=== PATIENT | male | born 1950 | race Caucasian/White ===

== ENCOUNTER 2017-10-22 14:33 | Outpatient (CLI) | payer MEDICARE ==
--- NOTE | 2017-10-22 16:07 | RAD ---
CHEST TWO VIEWS: 10/22/17 HISTORY: Dyspnea. COMPARISON: 05/27/16. FINDINGS: Cardiac silhouette and pulmonary vasculature are unremarkable. Mediastinum is midline. Calcified gran ulomata are consistent with healed granulomatous disease. There is no confluent air space consolidati on, pneumothorax or pleural fluid eminent. Degenerative changes involve the thoracic spine in the lat eral view. IMPRESSION: No active cardiopulmonary abnormalities are demonstrated. POS: [facility]
== END 2017-10-22 14:34 | disposition home or self-care (01) ==
LOC: RAD 14:33
PROVIDERS: ATTEND Internal Medicine
DX: R06.00 Dyspnea, unspecified (principal)
CPT/HCPCS: 71046

== ENCOUNTER 2017-11-12 18:00 | Outpatient (CLI) | payer MEDICARE | END 2017-11-12 18:01 | disposition home or self-care (01) | LOC: SLEEPLAB 18:00 | PROVIDERS: ATTEND Internal Medicine | DX: G47.33 Obstructive sleep apnea (adult) (pediatric) (principal); G47.31 Primary central sleep apnea; K21.9 Gastro-esophageal reflux disease without esophagitis | CPT/HCPCS: 95806 ==

== ENCOUNTER 2019-08-31 14:30 | Inpatient (IN) | payer MEDICARE ==
[2019-08-31 16:42] VITALS: BMI 27.9
[2019-09-08] MEDS ORDERED: Sodium Chloride 0.9% 100 ML ONE (05:58)
[2019-09-08] MEDS ORDERED: Tranexamic Acid 1,000 MG/10 ML VIAL ONE (05:58)
[2019-09-08] MEDS ORDERED: Vancomycin 1.5 GRAM/300 ML BAG 1.5 GM in Premix Bag 1 BAG IVPB SCH (06:00)
[2019-09-08] MEDS ORDERED: Midazolam HCl 2 mg/2 ml Vial ONE ×2 (06:20→06:46)
[2019-09-08] MEDS ORDERED: Fentanyl 100 MCG/2 ML VIAL ONE ×2 (06:20→06:46)
[2019-09-08] MEDS ORDERED: Lidocaine 1% (PF) 30 ML VIAL ONE (06:21)
[2019-09-08] MEDS ORDERED: Acetaminophen 325 MG TAB PO PRN ×2 (06:46→06:55)
[2019-09-08] MEDS ORDERED: HYDROcodone/Acetaminophen 10/325 mg Tablet PO PRN ×3 (06:46→06:53)
[2019-09-08] MEDS ORDERED: [UNRECOGNIZED DRUG - OTHER] INH PRN (06:50)
[2019-09-08] MEDS ORDERED: Promethazine HCl 25 MG/ML VIAL IM PRN (06:53)
[2019-09-08] MEDS ORDERED: Ropivacaine 0.2% 550 ML 550 ML NERVE BLCK SCH (06:53)
[2019-09-08] MEDS ORDERED: Zolpidem Tartrate 5 MG TAB PO PRN (06:53)
[2019-09-08] MEDS ORDERED: Ondansetron PF 4 MG/2 ML Vial IVP PRN (06:53)
[2019-09-08] MEDS ORDERED: traMADol HCl 50 MG TAB PO PRN ×2 (06:53)
[2019-09-08] MEDS ORDERED: Fentanyl 100 MCG/2 ML VIAL IV PRN (06:54)
[2019-09-08] MEDS ORDERED: Dextrose 5 %-0.45 % NaCl 1,000 ML IV SCH (07:00)
[2019-09-08] MEDS ORDERED: Aspirin 81 mg Enteric Coated Tablet PO SCH (07:00)
[2019-09-08] MEDS ORDERED: Lisinopril 20 MG TAB PO SCH (09:00)
[2019-09-08] MEDS ORDERED: Carvedilol 25 MG TAB PO SCH (09:00)
[2019-09-08] MEDS ORDERED: Atorvastatin Calcium 40 MG TAB PO SCH (09:00)
[2019-09-08] MEDS ORDERED: Ketorolac Tromethamine 30 MG/ML VIAL IVP SCH ×2 (12:00)
[2019-09-08] MEDS ORDERED: Ropivacaine 0.5% HCl/PF (150 MG/30 ML VIAL) ONE (13:42)
[2019-09-08] MEDS ORDERED: Ropivacaine 0.2% HCl/PF (40 MG/20 ML VIAL) ONE (13:42)
[2019-09-08] MEDS ORDERED: Glycopyrrolate 0.2 MG/ML 5 ML SYRINGE ONE (13:42)
[2019-09-08] MEDS ORDERED: Dexamethasone 20 MG/5 ML VIAL ONE (13:42)
[2019-09-08] MEDS ORDERED: Ketorolac Tromethamine 30 MG/ML VIAL ONE (13:42)
[2019-09-08] MEDS ORDERED: Rocuronium Bromide 10 MG/ML (10ML VIAL) ONE (13:42)
[2019-09-08] MEDS ORDERED: PHENYLEPHRINE-NS 100 MCG/ML 10 ML SYRINGE ONE (13:42)
[2019-09-08] MEDS ORDERED: Ondansetron PF 4 MG/2 ML Vial ONE (13:42)
[2019-09-08] MEDS ORDERED: ePHEDrine/0.9% NaCl/PF SYRINGE 50 mg/10 ml ONE (13:42)
[2019-09-08] MEDS ORDERED: PROPOFOL 200 MG/20 ML VIAL ONE (13:42)
[2019-09-08] MEDS ORDERED: CEFAZOLIN 2 GM in Premix Bag 1 BAG IVPB SCH (14:00)
[2019-09-08] MEDS ORDERED: Hydrochlorothiazide 25 MG TAB PO SCH (21:00)
--- NOTE | 2019-09-09 10:11 | OP ---
DATE OF PROCEDURE: 09/08/2019 PREOPERATIVE DIAGNOSES: 1. Degenerative joint disease, right shoulder. 2. Biceps tendinitis. POSTOPERATIVE DIAGNOSES: 1. Degenerative joint disease, right shoulder. 2. Biceps tendinitis. PROCEDURES PERFORMED: Left total shoulder arthroplasty and biceps tenodesis. IMPLANTS USED: Perform Cortiloc glenoid by Tornier size large 40, flex stem high offset head 48 x 18, flex stem 4C. SENIOR SYSTEMS ADMINISTRATOR: Easton Sin PA-C BLOOD LOSS: 150. SPECIMEN: None. DRAINS: None. COMPLICATION: None. DESCRIPTION OF PROCEDURE: After appropriate consent was obtained, the patient was taken to the operating room where general anesthesia was induced. The patient was placed in a beach chair position. Left arm was prepped and draped in the usual sterile fashion. Oblique incision was made in the deltopectoral interval. Cephalic vein was identified and preserved. Dissection was carried down to the conjoint tendon which was retracted medially. The subscapularis was taken down. The biceps tendon was in poor condition. It was taken down off the superior glenoid tubercle and tenodesed to the pectoralis tendon. Excess tendon was removed. The shoulder was then easily dislocated. I opened the humerus with a T handle and then cut a 20 mm retroversion superior cut. The subscapularis had been previously tagged. I used a subscapularis to follow this down to the anterior glenoid and a Bankart retractor was placed anteriorly, and drill was placed posteriorly. I drilled a center hole in the glenoid and reamed with a 1-step reamer. Irrigation was performed. The base plate was deployed without difficulty. Screws were inserted in the usual technique with good compression and fixation. Glenosphere was deployed without difficulty and the screw was tightened. Attention was turned back to the humerus which was opened with a T handle, and after using the acetabular reamer, I then also used a metaphyseal reamer. The appropriate size stem was trialed and polyethylene was trialed until the implants were determined as above. I did drill holes through the humerus, and a cottony Dacron suture was placed around the prosthesis through bone to facilitate repair of the subscapularis. Irrigation was performed. Permanent implants were placed. Shoulder was reduced. The subscapularis was repaired back to bone using the cottony Dacron suture. Irrigation performed again. The deltopectoral interval was tacked shut with 0 Vicryl, subcutaneous tissue was closed with 2-0 Vicryl, skin was closed with madhav, and sterile dressing was applied. Job ID: [id number]
== END 2019-09-08 14:35 | disposition home or self-care (01) | DRG 483 ==
LOC: SJJU 09-08 05:40
PROVIDERS: ADMIT Orthopaedic Surgery; ATTEND Orthopaedic Surgery
PROC: 0RRJ0JZ Replacement of Right Shoulder Joint with Synthetic Substitute, Open Approach (ICD-10-PCS; principal; 2019-09-08)
PROC: 0LS30ZZ Reposition Right Upper Arm Tendon, Open Approach (ICD-10-PCS; 2019-09-08)
DX: M19.012 Primary osteoarthritis, left shoulder (principal); M75.21 Bicipital tendinitis, right shoulder; I10 Essential (primary) hypertension; E78.5 Hyperlipidemia, unspecified; J45.909 Unspecified asthma, uncomplicated; M48.00 Spinal stenosis, site unspecified; K21.9 Gastro-esophageal reflux disease without esophagitis; Z79.51 Long term (current) use of inhaled steroids; Z79.899 Other long term (current) drug therapy
CPT/HCPCS: A4306; C1713; J0690; J1100; J1885; J2001; J2250; J2405; J2704; J2795; J3010; J3490

== ENCOUNTER 2019-08-31 16:24 | Outpatient (CLI) | payer MEDICARE ==
[2019-08-31 17:44] LABS: #Eosinphils 0.2 thou/uL (0.0-0.7); #Lymphocytes 1.8 thou/uL (1.20-3.40); #Monocytes 0.7 thou/uL (0.11-0.59); #Neutrophils 3.9 thou/uL (1.40-6.50); %Basophils 0.3 % (0.0-1.0); %Lymphocytes 27.3 % (21.0-51.0); %Monocytes 10.7 % (0.0-10.0); %Neutrophils 58.6 % (42.0-75.0); Hemoglobin 13.5 g/dL (14.0-18.0); Mean Corpuscular HGB CONC 34.2 g/dL (32.0-36.0); Mean Corpuscular Hemoglobin 31.4 pg (27.0-31.0); Mean Corpuscular Volume 91.6 fL (78.0-98.0); Platelet Count 262 thou/uL (130-400); RBC Distribution Width 12.2 % (11.5-14.5); Red Blood Cell (RBC) Count 4.29 mill/uL (4.70-6.10); White Blood Cell (WBC) Count 6.6 thou/uL (4.8-10.8)
[2019-08-31 18:13] LABS: Anion Gap 11 mmol/L (10-20); BUN (Urea Nitrogen) 20 mg/dL (8.4-25.7); Calc. Creatinine Clearance 0 mL/min (70-130); Calcium 9.3 mg/dL (7.8-10.44); Carbon Dioxide 28 mmol/L (23-31); Chloride 102 mmol/L (98-107); Estimated GFR-MDRD 64; Glucose 87 mg/dL (80-115); Potassium 3.7 mmol/L (3.5-5.1); Sodium 137 mmol/L (136-145)
--- NOTE | 2019-09-02 17:45 | EKG ---
Test Reason : Blood Pressure : / mmHG Vent. Rate : 074 BPM Atrial Rate : 074 BPM P-R Int : 172 ms QRS Dur : 094 ms QT Int : 392 ms P-R-T Axes : 023 083 047 degrees QTc Int : 435 ms Normal sinus rhythm Incomplete right bundle branch block Borderline ECG No previous ECGs available Confirmed by Henrietta SCHREIBER ([id number]) on 09/02/2019 5:45:20 PM Referred By: CATHI Confirmed By:Henrietta SCHREIBER
== END 2019-08-31 16:25 | disposition home or self-care (01) ==
LOC: LABBT 16:24
PROVIDERS: ATTEND Orthopaedic Surgery
DX: Z01.812 Encounter for preprocedural laboratory examination (principal); M19.012 Primary osteoarthritis, left shoulder
CPT/HCPCS: 80048; 85025; 93005; 93010

== ENCOUNTER 2019-11-10 13:47 | Outpatient (CLI) | payer MEDICARE ==
--- NOTE | 2019-11-10 15:46 | MRI ---
MRI Lumbar Spine Noncontrast: HISTORY: Back pain. Chronic left hip pain for 3 years. COMPARISON: None FINDINGS: There is incomplete visualization of an increased T2-weighted signal intensity lesion superior pole r ight kidney which is difficult to characterize due to small size. Remainder of the visualized retroperitoneal structures have a normal nonenhanced MRI appearance. Conus medullaris is normal in morphology and terminates at the L1-2 level. Multilevel degenerative changes are seen throughout the lumbar spine. There is increased T2 with demetrio esponding decreased T1-weighted signal intensity seen in the L1 and L2 vertebral bodies predominantly along the endplates most likely attributable to Modic type I endplate degenerative austin ges. There is severe loss of intervertebral disc height. There is generalized heterogeneity of the bone marrow with mild left convex curvature thoracolumbar spine centered at the L2-3 level. T11-12: There is loss of intervertebral disc height. There is a mild disc osteophyte complex narrowin g the ventral subarachnoid space. Neural foramina appear patent based on sagittal imaging. T12-L1 level: Minimal disc bulge is present. Central spinal canal and neural foramina are patent. L1-2: There is mild retrolisthesis of L1 on L2. As noted above, there are severe endplate degenerativ e changes at this level. Facet hypertrophic changes are seen. Generalized mild narrowing of the central spinal canal is present with moderate to severe left-sided neural foraminal narrowing. Right neural foramen is patent. L2-3: There is a broad-based disc bulge with a right paracentral disc protrusion. Prominent facet hyp ertrophic changes are noted. There is prominence of the posterior epidural fat. Constellation of these findings results in moderate central canal narrowing. Minimal bilateral neural foraminal narrow ing is present. L3-4: There is severe loss of intervertebral disc height with mild endplate degenerative changes. Fac et hypertrophic changes with broad-based disc osteophyte complex is present. Mild prominence of the epidural fat is noted. These degenerative changes result in severe narrowing of the central spinal ca nal with [id number] right and moderate left-sided neural foraminal narrowing. There is an 11 mm oval-shaped area of increased T2-weighted signal intensity seen adjacent to the L3 spinous process adjacent to the facet joint likely due to synovial cyst. L4-5: There is a Schmorl's node in the inferior endplate of L4 vertebral body. A broad-based disc ost eophyte complex is present. Severe facet hypertrophic changes are present much greater on the right with mild ligamentous thickening. Findings result in moderate central canal narrowing with moderate l eft and moderate to severe right-sided neural foraminal narrowing. L5-S1: There is a broad-based disc osteophyte complex present. Severe bilateral facet hypertrophic ch anges are present much greater on the left. A broad-based disc osteophyte complex is present with central disc protrusion. This does result in mass effect on the central aspect of the thecal sac. Mod erate right and mild left-sided neural foraminal narrowing are present. Severe narrowing of the subarticular zone on the right is present secondary to the severe facet hypertrophic changes. The fac et hypertrophic changes also result in mass effect on the right lateral aspect of the thecal sac, and in combination with the central disc protrusion/disc osteophyte complex likely affects the [place] right S1 nerve root with suggestion of mild deformity of the nerve root. IMPRESSION: 1. Multilevel degenerative changes throughout the lumbar spine with varying degrees of central canal and neural foraminal narrowing as described above. 2. Retrolisthesis of L1 on L2. 3. Multilevel facet hypertrophic changes. There is right convex scoliosis thoracolumbar spine.
== END 2019-11-10 13:48 | disposition home or self-care (01) ==
LOC: SCSMRI 13:47
PROVIDERS: ATTEND Orthopaedic Surgery
DX: M48.062 Spinal stenosis, lumbar region with neurogenic claudication (principal); M47.816 Spondylosis without myelopathy or radiculopathy, lumbar region; M43.16 Spondylolisthesis, lumbar region; M41.9 Scoliosis, unspecified
CPT/HCPCS: 72148

== ENCOUNTER 2020-09-25 11:48 | Outpatient (CLI) | payer MEDICARE ==
--- NOTE | 2020-09-25 13:04 | MRI ---
MRI BRAIN NONCONTRAST: DATE: 09/25/2020 HISTORY: 70-year-old male with malignant neoplasm of brain, glioblastoma, with altered mental status: increasi ng confusion. Dr. Joseph discussed the findings by telephone with Dr. Reyes at 12:38 PM 09/25/2020. Dr. Joseph instructed the cardiac catheterization technologist, Larry Kebede, 2 instruct the patient and family member that ca me with the patient, to go to neurosurgery office [facility] in the afternoon, as per 's instructions. COMPARISON: 06/13/2020 FINDINGS: Again noted are the right temporal parietal craniotomy changes. Medial to the craniotomy flap, the postoperative lateral extra-axial frontotemporal parietal fluid co llection has significantly increased in volume, currently measuring approximately 10 x 8.5 x 2 cm, and is causing a new finding of mass effect upon the right cerebral hemisphere, flattening the right lateral cerebral gyri. This fluid collection is predominantly hyperintense, mostly isointense relative to CSF on T2 WI, intermediate in signal intensity between that of CSF and brain parenchyma o n FLAIR and T1 WI, and contains within it very irregularly shaped strands of components that are hyperintense on FLAIR, intermediate signal intensity on T1 WI but more hyperintense than the surround ing rest of the fluid, associated with small foci of magnetic susceptibility artifact on gradient echo, and intermediate intensity on T2 WI, and have restricted diffusion. This could either represent blood clots or pus. Previously, there was right to left shift of the septum pellucidum a distance of 5 mm,, but that was due to the large residual heterogeneously enhancing necrotic tumor mass that was present in the right temporal lobe. Currently, that tumor mass has been resected, and in its place, there is a new 8 .5 x 4.5 x 2.5 cm porencephalic right temporal postsurgical resection cavity filled with CSF, that communicates with that trigone of the right lateral ventricle, via a 1.2 cm channel. There is a thin septum between the postsurgical cavity fluid collection of the temporal lobe, and the large extra-axial postsurgical fluid collection medial to the craniotomy flap. This thin septum bulges medi ally. There is mass effect and partial effacement of the trigone of the right lateral ventricle caused by t he postsurgical right temporal porencephalic cyst, but it is much less than the mass effect caused by the tumor on 06/13/2020. No obstructive hydrocephalus. No dural venous sinus thrombosis. DVA (developmental venous anomaly) in the cinda again noted. Basal cisterns are clear and patent. No acute hemorrhage or restricted diffusion within the brain parenchyma. IMPRESSION: 1) status post surgical resection of the right temporal lobe glioblastoma since the prior MRI. 2) new finding of moderately large right lateral extra-axial postoperative fluid collection which is causing new mass effect upon the right cerebral hemisphere. There are components of this collection that could either represent purulent material (abscess) or blood clots (recent hemorrhage). 3) the right temporal lobe intra-axial post resection cavity widely communicates with the trigone of the right lateral ventricle.
[2020-09-25] MEDS ORDERED: Magnevist 469MG/ML 20 ML VIAL ONE (13:34)
== END 2020-09-25 11:49 | disposition home or self-care (01) ==
LOC: MRI 11:48
PROVIDERS: ATTEND Internal Medicine Hematology & Oncology
DX: C71.9 Malignant neoplasm of brain, unspecified (principal); G93.89 Other specified disorders of brain; Z98.890 Other specified postprocedural states
CPT/HCPCS: 70553; A9579

== ENCOUNTER 2020-12-13 11:36 | Outpatient (CLI) | payer MEDICARE ==
[2020-12-13] MEDS ORDERED: Magnevist 469MG/ML 20 ML VIAL ONE (14:58)
== END 2020-12-13 11:37 | disposition home or self-care (01) ==
LOC: MRI 11:36
PROVIDERS: ATTEND Internal Medicine Hematology & Oncology
DX: C71.9 Malignant neoplasm of brain, unspecified (principal)
CPT/HCPCS: 70553; A9579